=== PATIENT | male | born 1970 | race Caucasian/White ===

== ENCOUNTER 2018-01-21 03:06 | Emergency (ER) | payer SELFPAY ==
[~2018-01-21] VITALS: Ht 175.3 cm; Wt 85.0 kg
[2018-01-21 03:16] VITALS: BP 144/91; PULSE 91; TEMP 98.3; O2SAT 98
--- NOTE | 2018-01-21 04:41 | RADRPT ---
EXAM DATE/TIME: 01/21/2018 04:21 [place] COMPARISON: No previous studies available for comparison. INDICATIONS : Cough, Chest congestion, and fever x 3 days. MEDICAL HISTORY : None. SURGICAL HISTORY : None. ENCOUNTER: Initial ACUITY: 3 days PAIN SCORE: 8/10 LOCATION: Bilateral chest FINDINGS: PA and lateral views of the chest demonstrate the lungs to be symmetrically aerated without evidence of mass, infiltrate or effusion. The cardiomediastinal contours are unremarkable. Osseous structure s are intact. CONCLUSION: No evidence of acute cardiopulmonary disease. Kristian Rock MD on January 21, 2018 at 4:39 Board Certified Radiologist. This report was verified electronically.
[2018-01-21] MEDS ORDERED: ZITHTAB PO (04:58)
[2018-01-21] MEDS ORDERED: PRED-503 PO (04:58)
[2018-01-21] MEDS ORDERED: ALBU6.7H INH (04:58)
[2018-01-21] MEDS ORDERED: predniSONE 20 MG TAB PO ONE (05:00)
[2018-01-21] MEDS ORDERED: AZITHROMYCIN 250 MG TAB PO ONE (05:00)
[2018-01-21] MEDS: RESP: ALBUTEROL 2.5 MG/IPRATROPIUM 0.5 MG NEB (SCH) INH (05:03)
--- NOTE | 2018-01-21 05:04 | PD ---
HPI Chief Complaint: Cold / Flu Symptoms Time Seen by Provider: 04:53 Travel History International Travel<30 days: No Contact w/Intl Traveler<30days: No Traveled to known affect area: No History of Present Illness HPI 47-year-old white male presents emergency department with complaints of cough, congestion and shortness of breath. He states it is been sick now for nearly 2 weeks. He had fever and chills initially but that has resolved. He states that it seems to settle down into his chest. This happens nearly yearly. He states that he has been diagnosed with bronchitis in the past. This feels similar. He denies any headache, ear pain, sore throat, nausea, vomiting, diarrhea or abdominal pain. No urinary symptoms. PFSH Past Medical History Narrative Medical Bronchitis Immunizations Current: Yes Tetanus Vaccination: Unknown Influenza Vaccination: No Past Surgical History Surgical History: No Previous Surgery Social History Alcohol Use: No Tobacco Use: Yes Substance Use: No Allergies-Medications (Allergen,Severity, Reaction): Coded Allergies: Sulfa (Sulfonamide Antibiotics) (Unverified Allergy, Mild, Nausea/Vomiting , 01/21/18) Reported Meds & Prescriptions Reported Meds & Active Scripts Active Zithromax Z-Norberto (Azithromycin) 250 Mg Dspk 250 Mg PO DIRECTED 500 MG (2 tabs) day 1, then 1 tab days 2-5. Deltasone (Prednisone) 20 Mg Tab 20 Mg PO BID Proventil Hfa 6.7 GM Inh (Albuterol Sulfate) 90 Mcg/Act Aer 2 Puff INH Q4-6H PRN Review of Systems Except as stated in HPI: all other systems reviewed are Neg Physical Exam Narrative GENERAL: Well-developed, well-nourished in no acute distress. Nontoxic appearing. HEAD: Normocephalic, atraumatic. EYES: Pupils equal round and reactive. Extraocular motions intact. No scleral icterus. No injection or drainage. ENT: TMs clear without erythema. The external auditory canals clear. Nose: clear . Posterior pharynx is pink and moist. No tonsillar edema or exudate. Uvula midline. Airway patent. NECK: Trachea midline.Supple, nontender, moves head freely. No central bony tenderness or spasm. CARDIOVASCULAR: Regular rate and rhythm without murmurs, gallops, or rubs. RESPIRATORY: Scattered rhonchi with fine extra wheeze. No rales. GASTROINTESTINAL: Abdomen soft, non-tender, nondistended. No hepato-splenomegaly , or palpable masses. No guarding. EXTREMITIES: No clubbing, cyanosis, or edema. No joint tenderness, effusion, or edema noted. BACK: Nontender without deformity or crepitance. No flank tenderness. Data Data Last Documented VS Vital Signs Date Time Temp Pulse Resp B/P (MAP) Pulse Ox O2 Delivery O2 Flow Rate FiO2 01/21/18 03:16 98.3 91 144/91 (108) 98 Orders Orders Chest, Pa & Lat (01/21/18 ) Influenzae A/B Antigen (01/21/18 04:10) Prednisone (Deltasone) (01/21/18 05:00) Albuterol-Ipratropium Neb (Duoneb Neb) (01/21/18 05:00) Azithromycin (Zithromax) (01/21/18 05:00) MDM Medical Decision Making Medical Screen Exam Complete: Yes Emergency Medical Condition: Yes Medical Record Reviewed: Yes Interpretation(s) Influenza: Negative Last 24 hours Impressions Chest X-Ray 01/21/18 0000 Signed Impressions: Service Date/Time: Sunday, January 21, 2018 04:21 - CONCLUSION: No evidence of acute cardiopulmonary disease. Kristian Rock MD Differential Diagnosis MDM: High Differential diagnoses: Pneumonia, bronchitis, URI, asthma, RAD, influenza Narrative Course Patient chest x-ray is negative. His influenza is negative. Patient was given prednisone 60 mg p.o., Zithromax 500 mg p.o. and 2 duo nebs. The patient is reexamined after his treatments and feels much improved. He is medically stable for discharge. This is bronchitis, reactive airway disease Diagnosis Primary Impression: Bronchitis Additional Impression: Reactive airway disease Patient Instructions: General Instructions Additional Instructions: Rest. Increase fluids. Tylenol and Advil. Robitussin-DM. Zithromax, prednisone, and albuterol. Followup with your DrSandeep in one week. Return to the ER for any problems. Med/Other Pt SpecificInfo: Prescription(s) given Scripts Azithromycin (Zithromax Z-Norberto) 250 Mg Dspk 250 MG PO DIRECTED for Infection, #1 DSPK 0 Refills 500 MG (2 tabs) day 1, then 1 tab days 2-5. Prov: Santhosh Kaiser MD 01/21/18 Prednisone (Deltasone) 20 Mg Tab 20 MG PO BID, #10 TAB 0 Refills Prov: Santhosh Kaiser MD 01/21/18 Albuterol 6.7 GM Inh (Proventil Hfa 6.7 GM Inh) 90 Mcg/Act Aer 2 PUFF INH Q4-6H Y for SHORTNESS OF BREATH, #1 INHALER 0 Refills Prov: Santhosh Kaiser MD 01/21/18 Disposition: 01 DISCHARGE HOME Condition: Stable Malcolm Menezes Jan 21, 2018 05:03
== END 2018-01-21 05:44 | disposition home or self-care (01) ==
LOC: NEPD 03:06
DX: J45.909 Unspecified asthma, uncomplicated (principal); Z72.0 Tobacco use; Z88.2 Allergy status to sulfonamides; Z79.899 Other long term (current) drug therapy
CPT/HCPCS: 71046; 87804; 94640; 94664; 99284; J7512